=== PATIENT | female | born 1965 | race African-American/Black ===

== ENCOUNTER 2024-11-19 09:40 | Outpatient (REF) | payer OTHER, SELFPAY ==
[2024-11-19 11:05] LABS: MANUAL DIFF FLAG NO
[2024-11-19 11:53] LABS: Hematocrit 36.8 % (37.0-47.0); Hemoglobin 12.2 g/dl (12.0-16.0); Imm Gran Abs Auto 0.01 X10*3/uL (0.00-0.03); Imm Gran Pct Auto 0.1 % (0.0-0.4); Lymphocytes Absolute Auto 2.1 X10*3/uL (1.2-4.9); Mean Corpuscular HGB Conc 33.2 g/dl (31.0-35.0); Mean Corpuscular Hemoglobin 30.7 pg (27.0-33.0); Mean Corpuscular Volume 92.7 fL (80.0-98.0); NRBC Abs Auto 0.000 X10*3/uL (0.0-0.012); NRBC Pct Auto 0.0 /100WBC (0.0-0.2); Platelet Count 282 X10*3/uL (160-400); Red Blood Count 3.97 X10*6/uL (4.20-5.50); White Blood Count 6.9 X10*3/uL (4.8-10.8)
[2024-11-19 12:33] LABS: Alanine Aminotransferase 17 U/L (0-31); Albumin Level 4.6 g/dL (3.5-5.0); Alkaline Phosphatase 75 U/L (39-117); Anion Gap 11 (12-20); Aspartate Amino Transferase 25 U/L (5-31); Blood Urea Nitrogen 15 mg/dL (9-16); Calcium 9.5 mg/dL (8.4-10.2); Carbon Dioxide 29 mmol/L (22-29); Chloride 106 mmol/L (96-108); Estimated Glomerular Filt Rate > 60; Potassium 4.1 mmol/L (3.3-5.1); Sodium 142 mmol/L (135-145); Total Protein 7.8 g/dL (6.5-8.0)
[2024-11-19 12:55] LABS: Carcinoembryonic Antigen < 1.73 ng/mL
[2024-11-23 19:18] LABS: Class Almond 2; Class Brazil Nut 0; Class Cashew 0; Class Codfish 0; Class Cow's Milk 0; Class Egg white 0; Class Hazelnut 2; Class Macadamia Nut 0/1; Class Peanut 2; Class Salmon 0; Class Scallop 0; Class Sesame Seed 0/1; Class Shrimp 0; Class Soybean 0/1; Class Tuna 0; Class Walnut 0; Class Wheat 0/1; F345-IgE Macadmia Nut 0.13 kU/L
[2024-11-23 22:38] LABS: Transglutaminase Ab IgG 1.0 U/mL
== END 2024-11-19 09:41 | disposition home or self-care (01) ==
LOC: HO.LAB 09:40
PROVIDERS: PCP Internal Medicine; Visit Provider Nurse Practitioner
DX: R10.9 Unspecified abdominal pain (principal); R19.7 Diarrhea, unspecified; K38.9 Disease of appendix, unspecified
CPT/HCPCS: 36415; 80053; 82378; 85025; 86003; 86364

== ENCOUNTER 2024-11-19 09:40 | Outpatient (AMB) | payer OTHER, SELFPAY ==
[2024-11-19 09:50] VITALS: BP 161/82; PULSE 65; BMI 37.5
--- NOTE | 2024-11-19 09:50 | A.OFFVIS_ITS ---
Vital Signs 11/19/24 09:50 Height 5 ft 2 in Weight 205 lb 0.478 oz BMI 37.5 BP 161/82 H Blood Pressure Location Lt brachial Position Sitting Pulse 65 Intake Visit Reasons: Abdominal Pain Intake Note: New patient in office today for abdominal pain. CC: Patient reports that fried foods and some other foods cause her to have explosive diarrhea. She states that she had EGD and colonoscopy done at [facility]. PT c/o gas pain, nausea, and GERD. She takes Tums sometimes. Patient gets BLQ abd pain some times. Accompanied by: Self / Same As Patient Allergies carrot Allergy (Unknown, Verified 11/19/24 10:05) scratchy throat kiwi Allergy (Unknown, Verified 11/19/24 10:05) scratchy throat latex Allergy (Unknown, Verified 11/19/24 10:05) Rash nut - unspecified Allergy (Unknown, Verified 11/19/24 10:05) scratchy throat peach Allergy (Unknown, Verified 11/19/24 10:05) scratchy throat sulfamethoxazole (From Bactrim) Allergy (Unknown, Verified 11/19/24 10:05) Rash tree nut Allergy (Unknown, Verified 11/19/24 10:05) Unknown trimethoprim (From Bactrim) Allergy (Unknown, Verified 11/19/24 10:05) Rash doxycycline Allergy (Verified 11/19/24 10:05) Rash HPI HPI Abdominal Pain: Details: 59-year-old female here for initial evaluation of abdominal pain. She is referred by [facility] primary care and [facility] 0. PMX Obesity-BMI 37 JOEY Asthma Allergic rhinitis History of breast cancer left breast Gastritis History of TA Appendicitis Back pain with right-sided sciatica Multiple food allergies * SURGICAL HISTORY Bilateral breast reduction Breast lumpectomy removed Colonoscopy 2017 Esophagogastroduodenoscopy-2013 Hysterectomy * ALLERGIES Bactrim Latex Doxycyclin * LABS: 06/2024 unremarkable renal and hepatic panels, unremarkable CBC, CT ABD AND PELVIS 07/15/2024 LIVER: NORMAL GALLBLADDER: NO CT EVIDENCE OF GALLBLADDER DISEASE BILE DUCTS: NO BILIARY DUCTAL DILATION SPLEEN NORMAL PANCREAS NORMAL STOMACH: SMALL BOWEL AND LARGE BOWEL NORMAL APPENDIX: PROXIMALLY THE APPENDIX IS NORMAL DISTALLY IT APPEARS SOMEWHAT THICKENED MEASURING 8 MM IN MAXIMAL DIMENSION WITH SUBTLE SURROUNDING SOFT TISSUE STRANDING. IMPRESSION: MILD DISTAL APPENDICEAL THICKENING WITH QUESTIONABLE SUBTLE SURROUNDING SOFT TISSUE STRANDING RAISING THE QUESTION OF MILD OR DISTAL APPENDICITIS. OTHERWISE NO EVIDENCE OF ACUTE PROCESS. TODAY'S VISIT [facility] Surgical History History of hysterectomy S/P breast lumpectomy H/O bilateral breast reduction surgery H/O colonoscopy History of esophagogastroduodenoscopy (EGD) Family History Father Prostate cancer Social History Alcohol intake: never Patient Tobacco Use Status: Former Tobacco user Cigarettes Per Day: 5 Years Smoked: 4 Review of Systems Const Denies fatigue, Denies fever(s), Denies night sweats, Denies poor appetite and Denies weight loss ENT Reports Normal hearing present, Denies dental pain, Denies dysphagia, Denies hearing loss, Denies mouth pain, Denies odynophagia, Denies throat swelling, Denies tongue swelling and Reports other (Dentition adequate) Card Reports no additional complaints Resp Reports no additional complaints GI Details: Reports abdominal pain, Denies melena, Reports bloating, Denies hematochezia, Denies constipation, Reports GI cramping, Denies dysphagia, Reports excessive flatus, Denies early satiety, Denies heartburn, Reports diarrhea, Denies nausea, Denies odynophagia, Denies vomiting and Denies hematemesis Skin/Breast Denies pruritus, Denies lesions, Denies rash and Denies jaundice Neuro Reports Normal hearing present and Denies Abnormal speech present Endo Denies fatigue Aller/Immun Denies throat swelling and Denies tongue swelling Physical Exam Vital Signs: Last Vital Signs Pulse 65 11/19/24 09:50 BP 161/82 H 11/19/24 09:50 BMI result Body Mass Index 37.5 Const General: cooperative, no acute distress, well developed and well groomed Nutritional Appearance: well nourished and obese Orientation/consciousness: oriented to person, oriented to place and oriented to time Limitations: No language barrier HEENT Head: Yes normocephalic and Yes atraumatic Eyes General: appearance normal, both eyes and all related structures Pupils: Equal, round and reactive pupils present Neck Neck: Yes normal visual inspection and Yes no lymphadenopathy Thyroid: Thyroid normal Resp Effort & Inspection: normal respiratory effort and able to speak in complete sentences Auscultation: clear to auscultation bilaterally Cardio Rate: regular rate Rhythm: regular rhythm Heart sounds: Normal, physiologic split S2 sound present Peripheral pulses: radial pulses present and posterior tibial pulses present GI Inspection: No distended, No Abdominal panniculus present and Yes obesity Palpation (GI): Soft to palpation, Tenderness to palpation present (GI) in the RLQ and with rebound tenderness; psoas sign negative, Guarding due to palpation present (GI), not rigid and No hepatosplenomegaly present Percussion: Yes normal to percussion Auscultation: normal bowel sounds Rectal Exam - Female: deferred Skin General skin exam: no rashes or lesions noted, turgor normal, skin not dry, no jaundice, No spider nevi and no striae Rashes: no rashes Nails: normal Neuro General: oriented to person, oriented to place and oriented to time Cranial nerves: Yes Equal, round and reactive pupils present and Yes Normal hearing present Speech: No Abnormal speech present Extrem General: Yes normal to inspection, No clubbing, No cyanosis and No edema Psych Appearance: grossly normal and well kempt Mental Status: mental status grossly normal Speech and movement: Normal speech and movement present Affect: normal affect Attitude: cooperative Thought process: Normal thought process present and not confabulating Thought content: Normal thought content present Insight: Fair insight present (Psych) Judgement: Fair judgement present (Psych) Assessment & Plan Assessment & Plan (1) Abdominal pain: Code(s): R10.9 - Unspecified abdominal pain Category: Medical (2) Appendix disease: Code(s): K38.9 - Disease of appendix, unspecified Category: Medical (3) Diarrhea: Code(s): R19.7 - Diarrhea, unspecified Category: Medical Plan - The patient is a 59-year-old female presenting with abdominal pain. Apparently she was seen at [facility] ER and a CAT scan was obtained showing potential appendicitis. A surgical consult did not think she was ready for an appendectomy at that time and she was discharged. Her primary care provider referred her to us. - Over the past year, she has experienced right lower quadrant abdominal pain, occasionally radiating to the left, which has increased in frequency and intensity. - Medical history includes a hysterectomy, chronic gastritis, sciatica, asthma, and a history of breast cancer and colon polyps. - The pain is sharp, lasts a few minutes, and occurs without a clear trigger, rated 7-8/10 at its worst. - A CT scan indicated a large appendix with stranding but the patient has no associated systemic symptoms like fever. - she also is very gassy and will have explosive diarrhea if she consumes a great deal of carbohydrates or soda. She does better on a low carb diet. She plans again to start a low carb diet in the near future. - Physical exertion does not directly initiate or worsen the pain. I spent time educating her that my role and this would be to try to tease out if there is a different pathology for her pain. A exhibit preparator role in treating appendicitis is nil. This is because the standard of care as either to admit for IV antibiotic treatment (oral are not effective) and/or consider an appendectomy. Depending on the outcome of our studies we could refer her to discuss an elective appendectomy with the surgeon. In the meantime, I think will explore her bloating gas and loose stools via a pancreatic a last taste and a fecal calprotectin get a RAST panel to check for food allergies aside from the known triggers, do a celiac panel, repeat the CAT scan to see if the inflammation persists, and get an ultrasound of the kidneys to rule out nephrolithiasis as another potential cause of pain. She did have a trace of hemoglobin in her urine at the ER. In the meantime I am going to give her a trial of dicyclomine to see if this helps with the pain. If it does have a significant positive impact then I tend to think that this could be more bowels spasm than appendicitis. It is also curious that the pain moves to the left which would be less likely with the appendicitis, although not unheard of. Return office visit in 3 weeks Orders: Orders Comprehensive Met. Panel Today R10.9 - Unspecified abdominal pain US renal BI Today R10.9 - Unspecified abdominal pain Transglutaminase IgA Today R19.7 - Diarrhea, unspecified CT abdomen pelvis w IV con Today K38.9 - Disease of appendix, unspecified, R10.9 - Unspecified abdominal pain Complete Blood Count Auto Diff Today R10.9 - Unspecified abdominal pain Carcinoembryonic Antigen Today R19.7 - Diarrhea, unspecified Pancreatic Elastase-1 Today R19.7 - Diarrhea, unspecified Transglutaminase Ab IgG Today R19.7 - Diarrhea, unspecified Medications: New dicyclomine 20 mg PO QID 120 tabs 1RF 30 days R10.9 - Unspecified abdominal pain Coding Level of Care Code New Pt Level 3 (41898) Diagnoses Abdominal pain R10.9 Appendix disease K38.9 Diarrhea R19.7
--- OUTSIDE RECORDS SUMMARY | 2024-11-19 10:41 | XMS_ITS | Clinical Summary ---
Author Organization [facility] Address [address] [place] [address] Phone Care Team Providers Care Time Clerk Name Role Phone Chrissy Verma MD Primary Care Provider [phone] Self-Referred, Patient Unavailable Unavailab Gayle Willingham MD Unavailable [email or web address] Paula Zuñiga MD Unavailable [phone] Rayray Pope MD Unavailable Allergies No known active allergies Medications tamoxifen (NOLVADEX) 20 MG tablet Take 20 mg by mouth daily. 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 Not on roland e 06/21/2022 Are you concerned about learning? Not on file 06/21/2022 No 06/21/2022 No 06/21/2022 Digital Access Answer Date Recorded No 07/20/2022 No 07/20/2022 No 07/20/2022 Reliable internet access at home? Not on file 07/20/2022 Device with a working camera? Not on file Comments Unknown Sex and Gender Information Value Date Recorded Sex Assigned at Not on file Legal Sex Female 3:05 PM EST Gender Identity Not on file Sexual Orientation Not on file Last Filed Vital Signs Vital Sign Reading Time Taken Comments Blood Pressure 138/63 03/13/2018 10:14 AM EST Pulse 68 03/13/2018 10:14 AM EST Temperature 36.8 C (98.3 F) 03/13/2018 10:14 AM EST Respiratory Rate 16 03/13/2018 10:14 AM EST Oxygen Saturation - - Inhaled Oxygen Concentration - - Weight 90.4 kg (199 lb 4.7 oz) 03/13/2018 10:14 AM EST Height 157.5 cm (5' 2.01 ) 03/13/2018 10:[address] DF Body Mass Index 36.44 03/13/2018 10:14 AM EST Plan of Treatment Health Maintenance Due Date Last Done Comments Adult Td,Tdap Booster 1966 LIPID PANEL 1966 DEPRESSION SCREENING 1978 SMOKING Hx and SMOKELESS TOBACCO SCREENING 06/19/1979 HEPATITIS C SCREENING 1984 HIV ONE-TIME SCREENING (18-65 YEARS) 1984 PNEUMOCOCCAL VACCINES (50+ years) (1 of 2 - PCV) 1985 ZOSTER VACCINES (1 of 2) 1985 PAP SMEAR 06/19/1987 COLOGUARD 06/19/2011 COLONOSCOPY 06/19/2011 COLORECTAL CANCER SCREENING 06/19/2011 FIT TEST 06/19/2011 FOBT 06/19/2011 SIGMOIDOSCOPY 06/19/2011 VIRTUAL COLONOSCOPY 06/19/2011 MAMMOGRAM 01/27/2020 01/26/2018, 11/25, 12/10/2017, Additional history exists INFLUENZA VACCINE (#1) 2024 COVID-19 VACCINE ( season) 2024 HEPATITIS A VACCINES Aged Out No long er eligible based on patient's age to complete this topic HIB VACCINES Aged Out No longer eligi ble based on patient's age to complete this topic MENINGOCOCCAL VACCINES (ACWY) Aged Out No longer eligible based on patient's age to complete this topic MENINGOCOCCAL VACCINES (B) Aged Out N o longer eligible based on patient's age to complete this topic Medical Devices Not on file Procedures Procedure Name Priority Date/Time Associated Diagnosis Comments BI MAMMOGRAM OUTSIDE (NO INTERPRETATION) Routine 01/26/2018 12:00 AM EST from Last 3 Months or Most Recently Relevant to Health Maintenance Results * Mammogram Outside (No Interpretation) (01/26/2018 12:00 AM EST) Other Narrative SPARKLE - 03/13/2018 10:31 AM EST This study is for PACS storage only and not for interpretation. us Gayle Gandhi MD IMG OUTSIDE IMAGING W/OUT I NTERPRETATION Final Result [facility]ELA from Last 3 Months or Most Recently Relevant to Health Maintenance Insurance O O O HMO O HMO Member Subscriber Plan / Payer (Ef fective 2018-Present) Name:Ge Cantu Relation to Subscriber:Self Name:Ge Cantu Payer ID:Not on file Type:HMO Address: [place] [id number] O Member Subscriber Plan / Payer (Ef fective 2018-Present) Name:Ge Cantu Relation to Subscriber:Self Name:Ge Cantu Payer ID:Not on file Type:HMO Address: [place] [id number] O Member Subscriber Plan / Payer (Ef fective 2018-Present) Name:Ge Cantu Relation to Subscriber:Self Name:Ge Cantu Payer ID:Not on file Type:O Address: [place] [id number] Care Teams Time Clerk Relationship Specialty Start Date End Date Chrissy Verma MD [address] [place] [address] PCP - General Internal Medicine 02/11/18 Self-Referred, Patient Referring Physician 02/11/18 Gayle Gandhi MD [email or web address] Medical Oncology 03/13/18 Paula Zuñiga MD [address] [place] [address] Medical Oncology 03/13/18 Rayray Pope MD [address] [place] [address] [email or web address] Radiation Oncology 03/13/18 Additional Source Comments The information contained in this document represents components of the legal health record. It is not the complete legal health record.[facility]
--- OUTSIDE RECORDS SUMMARY | 2024-11-19 10:41 | XMS_ITS | Clinical Summary ---
Author Organization [facility] ity Address [address] [place] [address] Care Team Providers Care Maintenance Shop Clerk Name Role Phone Unavailable Primary Care Provider Unavailabl e Medical History Medical History Date Comments Allergic rhinitis, cause unspecified 07/09/2005 DX:Allergic rhinitis, cause unspecified Headache(784.0) 09/02/2005 DX:Headache(784. 0) Headache(784.0) 09/02/2005 DX:Headache(784. 0) Heartburn 01/30/2006 DX:Heartburn Unspecified asthma(493.90) 07/09/2005 DX:Un specified asthma(493.90) Anxiety state, unspecified DX:An xiety state, unspecified Esophageal reflux 07/09/2005 DX:Esophageal reflux HSV-1 (herpes simplex virus 1) infection 12/24/2008 DX:HSV-1 (herpes simplex vir us 1) infection Family History Medical History Relation Name Comments Glaucoma Maternal Grandfather Cataracts Maternal Grandmother Other: Alzheimer's Mother Other: liver cancer Other 1 in the f amily Blindness Neg Hx Macular degeneration Neg Hx Strabismus Neg Hx Relation Name Status Comments Maternal Grandfather Maternal Grandmother Mother Other 1 Other 2 Social History Tobacco Use Types Packs/Day Years Used Date Smoking Tobacco: Former Alcohol Use Standard Drinks/Week Comments No 0 (1 standard drink = 0.6 oz pur e alcohol) Comments Unknown Sex and Gender Information Value Date Recorded Sex Assigned at Not on file Legal Sex Female 12:13 PM EST Gender Identity Not on file Sexual Orientation Not on file Obstetrics History Plan of Treatment Health Maintenance Due Date Last Done Comments Breast Cancer Screening 1966 Hepatitis B Vaccines (1 of 3 - 19+ 3-dose series) 1985 Cervical Cancer Screening: P ap Smear 06/19/1987 Pneumococcal Vaccine: 50+ Ye ars (1 of 1 - PCV) 2016 Zoster Vaccines (1 of 2) 2016 DTaP,Tdap,and Td Vaccines (2 - Td or Tdap) 12/23/2018 12/23/2008 Depression Screening 02/25/2024 COVID-19 Vaccine (1 - 2023-2 5 season) 2024 Influenza Vaccine (#1) 2024 HIB Vaccines Aged Out No longer eligi ble based on patient's age to complete this topic HPV Vaccines Aged Out No longer eligi ble based on patient's age to complete this topic Hepatitis A Vaccines Aged Out No long er eligible based on patient's age to complete this topic IPV Vaccines Aged Out No longer eligi ble based on patient's age to complete this topic MMR Vaccines Aged Out No longer eligi ble based on patient's age to complete this topic Meningococcal ACWY Vaccine Aged Out N o longer eligible based on patient's age to complete this topic Meningococcal B Vaccine Aged Out No l onger eligible based on patient's age to complete this topic RSV Immunization Patients Un alfonso 20 months Aged Out No longer eligible b ased on patient's age to complete this topic Varicella Vaccines Aged Out No longer eligible based on patient's age to complete this topic
--- OUTSIDE RECORDS SUMMARY | 2024-11-19 10:41 | XMS_ITS | Encounter Summary ---
Author Organization [facility] Address [address] [place] [address] Phone Care Team Providers Care Electroslag Welding Machine Operator Name Role Phone Chrissy Verma MD Primary Care Provider [phone] Self-Referred, Patient Unavailable Unavailab le Gayle Gandhi MD Unavailable [email or web address] Paula Zuñiga MD Unavailable [phone] Rayray Pope MD Unavailable Encounter Details Date Type Department Care Team (Late st Contact Info) Description 03/13/2018 Procedure Pass DF IMG OUTSIDE IMG [address] [place] [address] Social History Tobacco Use Types Packs/Day Years Used Date Smoking Tobacco: Never Assessed Comments Unknown Sex and Gender Information Value Date Recorded Sex Assigned at Not on file Legal Sex Female 3:05 PM EST Gender Identity Not on file Sexual Orientation Not on file documented as of this encounter Plan of Treatment Not on file documented as of this encounter Visit Diagnoses Not on filedocumented in this encounter Care Teams Electroslag Welding Machine Operator Relationship Specialty Start Date End Date Chrissy Verma MD [address] [place] [address] [address] [place] [address] PCP - General Internal Medicine 02/11/18 Self-Referred, Patient Referring Physician 02/11/18 Gayle Gandhi MD [email or web address] Medical Oncology 03/13/18 Paula Zuñiga MD [address] [facility] [place] [address] Medical Oncology 03/13/18 Rayray Pope MD [address] [facility] [place] [address] [email or web address] Radiation Oncology 03/13/18 documented as of this encounter Additional Source Comments The information contained in this document represents components of the legal health record. It is not the complete legal health record.[facility]
== END 2024-11-19 10:42 | disposition home or self-care (01) ==
PROVIDERS: Visit Provider Nurse Practitioner
DX: R10.9 Unspecified abdominal pain (principal); K38.9 Disease of appendix, unspecified; R19.7 Diarrhea, unspecified
CPT/HCPCS: 99203

== ENCOUNTER 2024-12-23 08:29 | Outpatient (REF) | payer OTHER, SELFPAY ==
--- NOTE | ~2024-12-23 | CT_ITS ---
EXAMINATION: CT ABDOMEN PELVIS WITH IV CONTRAST HISTORY: R10.9 - Unspecified abdominal pain COMPARISON: There are no prior studies for available comparison. TECHNIQUE: CT scan of the abdomen and pelvis was performed following administration of 85 mL Omnipaque 350 using standard departmental protocol. Coronal and sagittal reformatted images were generated and reviewed. The patient received oral contrast material. This CT exam was performed with one or more of the following dose reduction techniques: automated exposure control, adjustment of the mA and/or kV according to patient size, use of iterative reconstruction technique. DLP: 549 mGy-cm FINDINGS: LOWER CHEST: The visualized lung bases are clear. There is no pleural effusion. CARDIOVASCULATURE: The heart is normal in size. There is no pericardial effusion. LIVER: The liver is normal in size and contour. No liver mass is identified. The hepatic and portal veins are patent. GALLBLADDER / BILE DUCTS: The gallbladder is unremarkable. There is no intra or extrahepatic biliary ductal dilatation. SPLEEN: The spleen is normal in size. No focal splenic lesion is identified. PANCREAS: The pancreas is unremarkable in appearance. ADRENAL GLANDS: Within normal limits. KIDNEYS/RETROPERITONEUM: No renal calculi are identified. There is no hydronephrosis. Subcentimeter hypodensities in both kidneys likely represent cysts. LYMPH NODES: No abdominal or pelvic lymphadenopathy. VASCULATURE: The abdominal aorta is normal in caliber. MESENTERY/PERITONEUM: No free fluid. No masses. There is no free intraperitoneal gas. STOMACH: The stomach is unremarkable. SMALL BOWEL: The small bowel is normal in caliber. COLON: The colon is unremarkable. APPENDIX: Normal. URINARY BLADDER/PELVIC ORGANS: The urinary bladder is collapsed, limiting evaluation. The patient is status post hysterectomy. BONES / SOFT TISSUES: No suspicious bony or soft tissue abnormalities. CT/CT abdomen pelvis w IV con IMPRESSION: No inflammatory process is identified. Electronically signed by: Bud Arreaga MD 12/23/2024 09:37 AM EDT
--- OUTSIDE RECORDS SUMMARY | 2024-12-23 09:11 | XMS_ITS | Clinical Summary ---
Author Organization [facility] ity Address [address] [place] [id number] Care Team Providers Care Regional Marketing Manager Name Role Phone Unavailable Primary Care Provider [...] 5 season) 2024 Influenza Vaccine (#1) 2024 RSV Immunization Adult Patie nts (1 - 1-dose 75+ series) 2041 HIB Vaccines Aged Out No longer eligi [...]
[2024-12-23] MEDS: iohexoL 350 MG/ML 100 ML INFUS..BTL IV (09:23)
[2024-12-24 09:40] LABS: Creatinine POC 0.1 mg/dL (0.5-1.4); GFR POC > 60
== END 2024-12-23 08:30 | disposition home or self-care (01) ==
LOC: HO.CT 08:29
PROVIDERS: PCP Internal Medicine; Visit Provider Nurse Practitioner
DX: R10.9 Unspecified abdominal pain (principal); K38.9 Disease of appendix, unspecified
CPT/HCPCS: 74177; 82565; Q9967

== ENCOUNTER → 2024-12-23 08:31 | Outpatient (BNV) | payer OTHER, SELFPAY | PROVIDERS: PCP Internal Medicine; Visit Provider Radiology Diagnostic Radiology | DX: R10.9 Unspecified abdominal pain (principal) | CPT/HCPCS: 74177 ==

== ENCOUNTER 2024-12-23 09:06 | Outpatient (REF) | payer OTHER, SELFPAY ==
--- OUTSIDE RECORDS SUMMARY | 2024-12-23 10:13 | XMS_ITS | Encounter Summary ---
Author Organization [facility] Address [address] [place] [address] Phone Care Team Providers Care Flour Mixer Name Role Phone Chrissy Verma MD Primary Care Provider [phone] Self-Referred, Patient Unavailable Unavailab le Gayle Gandhi MD Unavailable [phone] Paula Zuñiga MD Unavailable [phone] Rayray Pope MD Unavailable Encounter Details Date Type Department Care Team (Late st Contact Info) Description 03/13/2018 Procedure Pass DF IMG OUTSIDE IMG [address] [place] [address] Social History Tobacco Use Types Packs/Day Years [...] on filedocumented in this encounter Care Teams Flour Mixer Relationship Specialty Start Date End Date Chrissy Verma MD [address] [place] [address] [address] [place] [address] PCP - General Internal Medicine 02/11/18 Self-Referred, Patient Referring Physician 02/11/18 Gayle Gandhi MD [email or web address] Medical Oncology 03/13/18 Paula Zuñiga MD [address] [place] [address] Medical Oncology 03/13/18 Rayray Pope MD [address] [place] [address] [email or web address] Radiation Oncology 03/13/18 documented as of this encounter Additional Source Comments The information contained in this document represents components of the legal health record. It is not the complete legal health record.[facility]
--- OUTSIDE RECORDS SUMMARY | 2024-12-23 10:13 | XMS_ITS | Clinical Summary ---
Author Organization [facility] Address [address] [place] [address] Phone Care Team Providers Care Central Office Supervisor Name Role Phone Chrissy Verma MD Primary Care Provider [phone] Self-Referred, Patient Unavailable Unavailab Gayle Willingham MD Unavailable [phone] Paula Zuñiga MD Unavailable [phone] Rayray Pope MD Unavailable Allergies No [...] INFLUENZA VACCINE (#1) 2024 COVID-19 VACCINE ( - 2024- season) 2024 RSV VACCINE (1 - 1-dose 75+ series) 2041 HEPATITIS A VACCINES Aged Out No long [...] Interpretation) (01/26/2018 12:00 AM EST) Other Narrative [facility] - 03/13/2018 10:31 AM EST This study is for PACS storage only and not for interpretation. us Gayle Gandhi MD IMG OUTSIDE IMAGING W/OU T INTERPRETATION Final Result PERCIPIO_[facility] from Last 3 Months or Most Recently Relevant to Health Maintenance Insurance O O HMO O O O HMO HMO HMO Care Teams Central Office Supervisor Relationship Specialty Start Date End Date Chrissy Verma MD [address] [place] [address] PCP - General Internal Medicine 02/11/18 Self-Referred, Patient Referring Physician 02/11/18 Gayle Gandhi MD [email or web address] Medical Oncology 03/13/18 Paula Zuñiga MD [address] [place] [address] Medical Oncology 03/13/18 Rayray Pope MD [address] [place] [address] [email or web address] Radiation Oncology 03/13/18 Additional Source Comments The information contained in this document represents components of the legal health record. It is not the complete legal health record.[facility]
== END 2024-12-23 09:07 | disposition home or self-care (01) ==
LOC: HO.LNP 09:06
PROVIDERS: Visit Provider Nurse Practitioner
DX: R19.7 Diarrhea, unspecified (principal)
CPT/HCPCS: 82656

== ENCOUNTER 2024-12-30 15:57 | Outpatient (AMB) | payer OTHER, SELFPAY ==
--- NOTE | 2024-12-30 15:58 | MHC.OFFVIS ---
Vital Signs 12/30/24 16:05 Height 5 ft 2 in Weight 193 lb 1.999 oz BMI 35.3 BP 131/65 Blood Pressure Location Lt brachial Position Sitting Pulse 67 Intake Visit Reasons: f/u CT scan Intake Note: Ge presents to in office follow up of CT scan. CC: Patient reports doing good today and denies having any new concerns. Crossing Guard Required: No Accompanied by: Self / Same As Patient Allergies carrot Allergy (Unknown, Verified 12/30/24 16:11) scratchy throat kiwi Allergy (Unknown, Verified 12/30/24 16:11) scratchy throat latex Allergy (Unknown, Verified 12/30/24 16:11) Rash nut - unspecified Allergy (Unknown, Verified 12/30/24 16:11) scratchy throat peach Allergy (Unknown, Verified 12/30/24 16:11) scratchy throat sulfamethoxazole (From Bactrim) Allergy (Unknown, Verified 12/30/24 16:11) Rash tree nut Allergy (Unknown, Verified 12/30/24 16:11) Unknown trimethoprim (From Bactrim) Allergy (Unknown, Verified 12/30/24 16:11) Rash doxycycline Allergy (Verified 12/30/24 16:11) Rash HPI HPI f/u CT scan: Details: Assessment & Plan (1) Abdominal pain: Code(s): R10.9 - Unspecified abdominal pain Category: Medical (2) Appendix disease: Code(s): K38.9 - Disease of appendix, unspecified Category: Medical (3) Diarrhea: Code(s): R19.7 - Diarrhea, unspecified Category: Medical Plan - The patient is a 59-year-old female presenting with abdominal pain. Apparently she was seen at [facility] ER and a CAT scan was obtained showing potential appendicitis. A surgical consult did not think she was ready for an appendectomy at that time and she was discharged. Her primary care provider referred her to us. - Over the past year, she has experienced right lower quadrant abdominal pain, occasionally radiating to the left, which has increased in frequency and intensity. - Medical history includes a hysterectomy, chronic gastritis, sciatica, asthma, and a history of breast cancer and colon polyps. - The pain is sharp, lasts a few minutes, and occurs without a clear trigger, rated 7-8/10 at its worst. - A CT scan indicated a large appendix with stranding but the patient has no associated systemic symptoms like fever. - she also is very gassy and will have explosive diarrhea if she consumes a great deal of carbohydrates or soda. She does better on a low carb diet. She plans again to start a low carb diet in the near future. - Physical exertion does not directly initiate or worsen the pain. I spent time educating her that my role and this would be to try to tease out if there is a different pathology for her pain. A director of orthopedics role in treating appendicitis is nil. This is because the standard of care as either to admit for IV antibiotic treatment (oral are not effective) and/or consider an appendectomy. Depending on the outcome of our studies we could refer her to discuss an elective appendectomy with the surgeon. In the meantime, I think will explore her bloating gas and loose stools via a pancreatic a last taste and a fecal calprotectin get a RAST panel to check for food allergies aside from the known triggers, do a celiac panel, repeat the CAT scan to see if the inflammation persists, and get an ultrasound of the kidneys to rule out nephrolithiasis as another potential cause of pain. She did have a trace of hemoglobin in her urine at the ER. In the meantime I am going to give her a trial of dicyclomine to see if this helps with the pain. If it does have a significant positive impact then I tend to think that this could be more bowels spasm than appendicitis. It is also curious that the pain moves to the left which would be less likely with the appendicitis, although not unheard of. Return office visit in 3 weeks Orders: Orders Comprehensive Met. Panel Today R10.9 - Unspecified abdominal pain US renal BI Today R10.9 - Unspecified abdominal pain Transglutaminase IgA Today R19.7 - Diarrhea, unspecified CT abdomen pelvis w IV con Today K38.9 - Disease of appendix, unspecified, R10.9 - Unspecified abdominal pain Complete Blood Count Auto Diff Today R10.9 - Unspecified abdominal pain Carcinoembryonic Antigen Today R19.7 - Diarrhea, unspecified Pancreatic Elastase-1 Today R19.7 - Diarrhea, unspecified Transglutaminase Ab IgG Today R19.7 - Diarrhea, unspecified Medications: New dicyclomine 20 mg PO QID 120 tabs 1RF 30 days R10.9 - Unspecified abdominal pain LABS: Laboratory Tests 11/19/24 12/23/24 11:03 08:51 WBC 6.9 Hgb 12.2 Hct 36.8 L MCV 92.7 MCH 30.7 Plt Count 282 POC GFR > 60 Total Bilirubin 0.4 AST 25 ALT 17 Alkaline Phosphatase 75 Carcinoembryonic Ag < 1.73 Tiss Transglutamin IgG 1.0 Tiss Transglutamin IgA <1.0 RAST panel shows allergies to almonds, Lady nuts, macadamia nuts, peanuts, soy beans, sesame, and wheat PANCREATIC ELASTASE IS PENDING RENAL ULTRASOUND CT ABDOMEN AND PELVIS 12/23/2024 FINDINGS: LOWER CHEST: The visualized lung bases are clear. There is no pleural effusion. CARDIOVASCULATURE: The heart is normal in size. There is no pericardial effusion. LIVER: The liver is normal in size and contour. No liver mass is identified. The hepatic and portal veins are patent. GALLBLADDER / BILE DUCTS: The gallbladder is unremarkable. There is no intra or extrahepatic biliary ductal dilatation. SPLEEN: The spleen is normal in size. No focal splenic lesion is identified. PANCREAS: The pancreas is unremarkable in appearance. ADRENAL GLANDS: Within normal limits. KIDNEYS/RETROPERITONEUM: No renal calculi are identified. There is no hydronephrosis. Subcentimeter hypodensities in both kidneys likely represent cysts. LYMPH NODES: No abdominal or pelvic lymphadenopathy. VASCULATURE: The abdominal aorta is normal in caliber. MESENTERY/PERITONEUM: No free fluid. No masses. There is no free intraperitoneal gas. STOMACH: The stomach is unremarkable. SMALL BOWEL: The small bowel is normal in caliber. COLON: The colon is unremarkable. APPENDIX: Normal. URINARY BLADDER/PELVIC ORGANS: The urinary bladder is collapsed, limiting evaluation. The patient is status post hysterectomy. BONES / SOFT TISSUES: No suspicious bony or soft tissue abnormalities. CT/CT abdomen pelvis w IV con IMPRESSION: No inflammatory process is identified. TODAY'S VISIT [facility] Surgical History History of hysterectomy S/P breast lumpectomy H/O bilateral breast reduction surgery H/O colonoscopy History of esophagogastroduodenoscopy (EGD) Family History Father Prostate cancer Social History Alcohol intake: never Patient Tobacco Use Status: Former Tobacco user Cigarettes Per Day: 5 Years Smoked: 4 Review of Systems Const Denies fatigue, Denies fever(s), Denies night sweats, Denies poor appetite and Denies weight loss Eyes Reports requires corrective lenses ENT Reports Normal hearing present, Denies dental pain, Denies dysphagia, Denies hearing loss, Denies mouth pain, Denies odynophagia, Denies throat swelling, Denies tongue swelling and Reports other (Dentition adequate) GI Details: Denies abdominal pain, Denies melena, Denies bloating, Denies hematochezia, Denies constipation, Denies GI cramping, Denies dysphagia, Denies excessive flatus, Denies early satiety, Denies heartburn, Denies diarrhea, Denies nausea, Denies odynophagia, Denies vomiting and Denies hematemesis Skin/Breast Denies pruritus, Denies lesions, Denies rash and Denies jaundice Neuro Reports Normal hearing present and Denies Abnormal speech present Endo Denies fatigue Aller/Immun Denies throat swelling and Denies tongue swelling Physical Exam Vital Signs: Last Vital Signs Pulse 67 12/30/24 16:05 BP 131/65 12/30/24 16:05 BMI result Body Mass Index 35.3 Const General: cooperative, no acute distress, well developed and well groomed Nutritional Appearance: well nourished, obese and overweight Orientation/consciousness: oriented to person, oriented to place and oriented to time Limitations: No language barrier, ambulation with cane, ambulation with walker and wheelchair HEENT Head: Yes normocephalic and Yes atraumatic Eyes General: appearance normal, both eyes and all related structures Pupils: Equal, round and reactive pupils present Neck Neck: Yes normal visual inspection and Yes no lymphadenopathy Thyroid: Thyroid normal Resp Effort & Inspection: normal respiratory effort and able to speak in complete sentences Auscultation: clear to auscultation bilaterally Cardio Rate: regular rate Rhythm: regular rhythm Heart sounds: Normal, physiologic split S2 sound present Peripheral pulses: radial pulses present and posterior tibial pulses present GI Inspection: No distended and No Abdominal panniculus present Palpation (GI): Soft to palpation, nontender, no guarding, not rigid, No hepatosplenomegaly present and Hepatosplenomegaly present Percussion: Yes normal to percussion Auscultation: normal bowel sounds Rectal Exam - Female: deferred Skin General skin exam: no rashes or lesions noted, turgor normal, skin not dry, no jaundice, No spider nevi and no striae Rashes: no rashes Nails: normal Neuro General: oriented to person, oriented to place and oriented to time Cranial nerves: Yes Equal, round and reactive pupils present and Yes Normal hearing present Speech: No Abnormal speech present Extrem General: Yes normal to inspection, No clubbing, No cyanosis and No edema Psych Thought process: Normal thought process present and not confabulating Thought content: Normal thought content present Insight: Good insight present (Psych) Judgement: Good judgement present (Psych) Assessment & Plan Assessment & Plan (1) Multiple food allergies: Comment: Nuts, cherries, carrots, kiwi, peaches RAST panel shows almonds, Lady nuts, macadamia nuts, peanuts, sesame seeds, soy beans, wheat Code(s): Z91.018 - Allergy to other foods Category: Medical Plan - The patient is a 59-year-old female presenting with abdominal pain. - Recent focus on possible appendicitis at [facility], though appendicitis was ultimately not confirmed. Appendix appeared inflamed likely secondary to food allergies. - Identification of multiple allergies including wheat, nuts, and soy as underlying factors causing significant abdominal distress. - Symptoms improved significantly after dietary changes that excluded allergenic foods. - She had cramping diarrhea after consuming certain foods, notably wheat-based, leading to severe reactions. - No current medication for abdominal symptoms due to improved dietary management. - Avoid all foods containing wheat, almonds, hazelnuts, macadamia nuts, peanuts, soybeans, and sesame. - Read food labels carefully to avoid cross-contamination. - Maintain a gluten-free diet and opt for gluten-free bread and pasta. - Monitor for any recurrence of abdominal pain or diarrhea and seek immediate care if symptoms worsen. - Schedule a follow-up appointment in six months to review progress and any new results. - Place emphasis on dietary adherence to meet weight loss goals. Coding Level of Care Code Est Pt Level 3 (96403) Diagnoses Multiple food allergies Z91.018
[2024-12-30 16:05] VITALS: BP 131/65; PULSE 67; BMI 35.3
--- OUTSIDE RECORDS SUMMARY | 2024-12-30 18:32 | XMS_ITS | Encounter Summary ---
Author Organization [facility] Address [address] [place] [address] Phone Care Team Providers Care Liberal Arts Dean Name Role Phone Chrissy Verma MD Primary Care Provider [phone] Self-Referred, Patient Unavailable Unavailab le Gayle Gandhi MD Unavailable [phone] Paula Zuñiga MD Unavailable [phone] Rayray Pope MD Unavailable Encounter Details Date Type Department Care Team (Late st Contact Info) Description 03/13/2018 Procedure Pass DF IMG OUTSIDE IMG [address] [place] [address] Social History Tobacco Use Types Packs/Day Years [...] on filedocumented in this encounter Care Teams Liberal Arts Dean Relationship Specialty Start Date End Date Chrissy Verma MD [address] [place] [address] [address] [place] [address] PCP - General Internal Medicine 02/11/18 Self-Referred, Patient Referring Physician 02/11/18 Gayle Gandhi MD [email or web address] Medical Oncology 03/13/18 Paula Zuñiga MD [address] [place] [address] Medical Oncology 03/13/18 Rayray Pope MD [address] [place] [address] [email or web address] Radiation Oncology 03/13/18 documented as of this encounter Additional Source Comments The information contained in this document represents components of the legal health record. It is not the complete legal health record.[facility]
--- OUTSIDE RECORDS SUMMARY | 2024-12-30 18:32 | XMS_ITS | Clinical Summary ---
Author Organization [facility] it[facility] Address [id number] [place] [id number] Care Team Providers Care Home Service Technician Name Role Phone Unavailable Primary Care Provider [...]
--- OUTSIDE RECORDS SUMMARY | 2024-12-30 18:32 | XMS_ITS | Clinical Summary ---
Author Organization [facility] Address [address] [place] [address] Phone Care Team Providers Care Atomizer Assembler Name Role Phone Chrissy Verma MD Primary Care Provider [phone] Self-Referred, Patient Unavailable Unavailab Gayle Willingham MD Unavailable [phone] Paula Zuñiga MD Unavailable [phone] Rayray Pope MD Unavailable Allergies No known [...] O O HMO HMO HMO Care Teams Atomizer Assembler Relationship Specialty Start Date End Date Chrissy Verma MD [address] [place] [address] PCP - General Internal Medicine 02/11/18 Self-Referred, Patient Referring Physician 02/11/18 Gayle Gandhi MD [email or web address] 03/13/18 Paula Zuñiga MD [address] [place] [address] Medical Oncology 03/13/18 Rayray Pope MD [address] [place] [address] [email or web address] Radiation Oncology 03/13/18 Additional Source Comments The information contained in this document represents components of the legal health record. It is not the complete legal health record.[facility]
== END 2024-12-30 16:42 | disposition home or self-care (01) ==
LOC: HO.HGI 15:58
PROVIDERS: PCP Internal Medicine; Visit Provider Nurse Practitioner
DX: Z91.018 Allergy to other foods (principal)
CPT/HCPCS: 99213

== ENCOUNTER 2025-01-26 16:02 | Outpatient (REF) | payer OTHER, SELFPAY ==
--- NOTE | ~2025-01-26 | US_ITS ---
EXAMINATION: US KIDNEY BILATERAL HISTORY: R10.9 - Unspecified abdominal pain TECHNIQUE: Real-time grayscale ultrasound imaging of the kidneys was performed and images were reviewed. COMPARISON: Correlation is made with a CT of the abdomen with contrast dated 12/23/2024 FINDINGS: Right kidney: The right kidney measures 10.7 x 5.2 x 4.2 cm. Renal parenchymal echotexture and thickness are normal. There is a cyst in the interpolar region measuring 10 mm in size. There is no hydronephrosis or renal calculi. Left Kidney: The left kidney measures 10.7 x 4.9 x 4.4 cm. Renal parenchymal echotexture and thickness are normal. There are no masses. There is no hydronephrosis or renal calculi. US/US renal BI IMPRESSION: Unremarkable renal ultrasound. Electronically signed by: Bud Arreaga MD 01/27/2025 07:01 AM [facility]
--- OUTSIDE RECORDS SUMMARY | 2025-01-26 18:49 | XMS_ITS | Clinical Summary ---
Author Organization [facility] ity Address [address] [place] [phone] Care Team Providers Care Optical Effects Layout Person Name Role Phone Unavailable Primary Care Provider [...] Depression Screening 02/25/2024 COVID-19 Vaccine (1 - 2024-2 6 season) 2024 Influenza Vaccine (#1) 2024 RSV [...]
--- OUTSIDE RECORDS SUMMARY | 2025-01-26 18:49 | XMS_ITS | Encounter Summary ---
Author Organization [facility] Address [address] [place] [id number] Phone Care Team Providers Care Roof Slater Name Role Phone Chrissy Verma MD Primary Care Provider [phone] Self-Referred, Patient Unavailable Unavailab le Gayle Gandhi MD Unavailable [phone] Paula Zuñiga MD Unavailable [phone] Rayray Pope MD Unavailable Encounter Details Date Type Department Care Team (Late st Contact Info) Description 03/13/2018 Procedure Pass DF IMG OUTSIDE IMG [address] [place] [address] Social History Tobacco Use Types Packs/Day Years [...] on filedocumented in this encounter Care Teams Roof Slater Relationship Specialty Start Date End Date Chrissy Verma MD [address] [place] [address] [address] [place] [address] PCP - General Internal Medicine 02/11/18 Self-Referred, Patient Referring Physician 02/11/18 Gayle Gandhi MD [email or web address] Medical Oncology 03/13/18 Paula Zuñiga MD [address] [place] [address] Medical Oncology 03/13/18 Rayray Pope MD [address] [place] [address] [email or web address] Radiation Oncology 03/13/18 documented as of this encounter Additional Source Comments The information contained in this document represents components of the legal health record. It is not the complete legal health record.[facility]
== END 2025-01-26 16:03 | disposition home or self-care (01) ==
LOC: HO.US 16:02
PROVIDERS: PCP Internal Medicine; Visit Provider Nurse Practitioner
DX: R10.9 Unspecified abdominal pain (principal)
CPT/HCPCS: 76775

== ENCOUNTER → 2025-01-26 16:04 | Outpatient (BNV) | payer OTHER, SELFPAY | PROVIDERS: PCP Internal Medicine; Visit Provider Radiology Diagnostic Radiology | DX: R10.9 Unspecified abdominal pain (principal) | CPT/HCPCS: 76775 ==